=== PATIENT | female | born 1975 | race American Indian/Alaskan Native ===

== ENCOUNTER 2020-11-08 12:57 | Emergency (ER) | payer OTHER ==
[2020-11-08] MEDS ORDERED: IBUPROFEN 800 MG TAB PO ONE (13:59)
[2020-11-08] MEDS ORDERED: HYDROcodone/ACETAMINOPHEN 5-325 MG TAB PO ONE (13:59)
[2020-11-08 14:07] VITALS: BP 141/74
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
== END 2020-11-08 14:57 | disposition home or self-care (01) ==
LOC: ED 12:57
DX: S16.1XXA Strain of muscle, fascia and tendon at neck level, initial encounter (principal); I48.91 Unspecified atrial fibrillation; M10.9 Gout, unspecified; Z91.041 Radiographic dye allergy status; Z91.013 Allergy to seafood; Z98.890 Other specified postprocedural states; Z79.899 Other long term (current) drug therapy; V49.49XA Driver injured in collision with other motor vehicles in traffic accident, initial encounter; Y92.410 Unspecified street and highway as the place of occurrence of the external cause; Y93.89 Activity, other specified; Y99.8 Other external cause status
CPT/HCPCS: 72040